=== PATIENT | female | born 1960 | race Caucasian/White ===

== ENCOUNTER → 2022-07-08 15:19 | Outpatient (BNVA) | payer MEDICAID, SELFPAY | PROVIDERS: Referring Provider Family Medicine; Visit Provider Orthopaedic Surgery | DX: M16.12 Unilateral primary osteoarthritis, left hip (principal) | CPT/HCPCS: 73502 ==

== ENCOUNTER 2022-08-25 15:14 | Observation (INO) | payer OTHER, MEDICAID, SELFPAY ==
[2022-08-21 12:58] VITALS: BMI 24.6
--- NOTE | 2022-08-21 13:13 | ECG_ITS ---
[facility] Test Date: 2022-08-21 Pat Name: Radha Ponce Department: Room: Gender: Female Personal Service Workers: : 1960 Requested By: Juan Miguel Negrete Order Number: [id number] Ada MD: Basim Amezcua M.D. Measurements Intervals [place] Rate: 80 P: 68 IA: 157 QRS: 1 QRSD: 77 T: 63 QT: 360 QTc: 417 Interpretive Statements SINUS RHYTHM POSSIBLE LEFT ATRIAL ENLARGEMENT [-0.1mV P-WAVE IN V1/V2] No previous ECG available for comparison Electronically Signed On 08-21-2022 18:10:03 PHOTOENGRAVER APPRENTICE by Basim Amezcua M.D. [email or web address]
[2022-08-21 13:24] LABS: Basophils # 0.1 10^3/uL (0.0-0.1); Basophils % 0.8 %; Eosinophils # 0.2 10^3/uL (0.0-0.8); Eosinophils % 3.2 %; Hematocrit 41.5 % (37.0-47.0); Hemoglobin 12.7 g/dL (11.5-15.3); Lymphocytes # 1.9 10^3/uL (0.8-4.8); Lymphocytes % 29.2 %; Mean Corpuscular HGB Conc 30.6 g/dL (30.0-36.0); Mean Corpuscular Hemoglobin 29.3 pg (28.0-34.0); Mean Corpuscular Volume 95.8 fl (81-99); Mean Platelet Volume 9.9 fL (7.4-10.4); Monocytes # 0.3 10^3/uL (0.2-0.9); Monocytes % 4.8 %; Neutrophils # 4.01 10^3/uL (1.8-7.7); Neutrophils % 61.8 %; Nucleated Red Blood Cells % 0 %; Platelet Count 269 10^3/cmm (130-400); Red Blood Count 4.33 10^6/uL (4.1-5.3); Red Cell Distribution Width 13.4 % (12.1-15.1); White Blood Count 6.5 10^3/uL (4.0-10.0)
[2022-08-21 13:55] LABS: Anion Gap 15.3 (5-19); Blood Urea Nitrogen 11 mg/dL (8-23); Calcium 9.7 mg/dL (8.5-10.5); Carbon Dioxide 29 mmol/L (22-29); Chloride 98 mmol/L (98-107); Glomerular Filtration Rate 72.7 mL/min (90-130); Glucose 94 mg/dL (65-115); Osmolality Calculated 285 mOsm/kg (285-295); Potassium 4.3 mmol/L (3.5-5.1); Sodium 138 mmol/L (136-145)
--- NOTE | 2022-08-21 15:10 | P.ANESASSM_ITS ---
Pre-Anesthetic Assessment Height/Weight: Height 1.73 m Weight 73.482 kg Operation Date: 08/25/22 10:15 Proposed Procedures p eft total hip arthoplasty/ 66041,M87.052(Left) - Carlos Murrieta MD Familial anesthetic complications: none Was Beta Lilia taken within 24 hours: N/A Was Clonidine taken within 24 hours: N/A Social Tobacco and No alcohol Exam alert, oriented x 3 and regular rate & rhythm Airway Submandibular: within normal limits Cervical ROM: within normal limits Mallampati: Class II Dentition: chipped Pulmonary Asthma and Chronic Obstructive Pulmonary Disease CV/HEM Hypertension GI Gastroesophageal Reflux Disease Metabolic Hyperlipidemia [facility] [place] Osteoarthritis/DJD Anesthetic Plan ASA status: 3 Anesthesia: Regional (specify below) (SAB) Medications/Allergies Home Medications Medication Instructions Recorded Confirmed Last Taken Type diphenhydramine HCl 25 mg capsule 25 mg PO TID PRN Allergy Symptoms 07/08/22 08/21/22 Unknown History (Benadryl) duloxetine 60 mg capsule,delayed 60 mg PO DAILY 07/08/22 08/21/22 Unknown History release (Cymbalta) gabapentin 400 mg capsule 800 mg PO TID 07/08/22 08/21/22 Unknown History lisinopril 10 mg tablet 10 mg PO DAILY 07/08/22 08/21/22 Unknown History meloxicam 15 mg tablet 15 mg PO DAILY 07/08/22 08/21/22 Unknown History montelukast 10 mg tablet 10 mg PO DAILY 07/08/22 08/21/22 Unknown History (Singulair) omeprazole 40 mg capsule,delayed 40 mg PO DAILY 07/08/22 08/21/22 Unknown History release simvastatin 20 mg tablet 20 mg PO DAILY 07/08/22 08/21/22 Unknown History acetaminophen 325 mg capsule 325 mg PO PRN PRN Pain 08/21/22 08/21/22 Unknown History (Tylenol) fluticasone 100 mcg-salmeterol 50 1 inh inhalation BID 08/21/22 08/21/22 Unknown History mcg/dose blistr powdr for inhalation (Advair Diskus) Allergies Allergy/AdvReac Type Severity Reaction Status Date / Time No Known Allergies Allergy Verified 08/21/22 12:53 COUNT INCLUDES THE [facility] Anesthesia Social History (Updated 07/08/22 @ 15:14 by Yash Rafaela, BOLT LOADER) Smoking and tobacco status: current every day smoker Alcohol intake: never Data Anesthesia 08/21/22 13:10 08/21/22 13:10 Short CBC 08/21/22 Range/Units 13:10 WBC 6.5 (4.0-10.0) 10^3/uL Hgb 12.7 (11.5-15.3) g/dL Hct 41.5 (37.0-47.0) % MCV 95.8 (81-99) fl Plt Count 269 (130-400) 10^3/cmm Neut % (Auto) 61.8 % Neut # (Auto) 4.01 (1.8-7.7) 10^3/uL BMP 08/21/22 13:10 Sodium 138 Potassium 4.3 Chloride 98 Carbon Dioxide 29 BUN 11 Creatinine 0.8 Glucose 94 Calcium 9.7 Cardiac Studies: No Data to Display
[2022-08-25] VITALS (16 sets, daily range): BP systolic 90–161; BP diastolic 54–92; PULSE 57–96; RESP 16–20; TEMP 36.2–37.1; O2SAT 92–100
[2022-08-25] MEDS: CELEcoxib 200 mg Capsule 400 MG PO (11:29)
[2022-08-25] MEDS: oxyCODONE 20 mg ER (12 HR) Tablet PO (11:29)
[2022-08-25] MEDS: acetaminophen 500 mg Tablet 1000 MG PO ×2 (11:30→17:30)
[2022-08-25] MEDS: sodium chloride 0.9% 1,000 ML 30 ML IV (11:30)
--- NOTE | 2022-08-25 11:46 | P.ANESUD_ITS ---
Pre-Anesthetic Update Pre-Anesthetic Assessment: Date of Surgery/Procedure: 08/25/22 Preop Shannon gnosis: Osteoarthritis left hip Proposed Procedure: Operation Date: 08/25/22 12:35 Proposed Procedures p Left total hip arthoplasty/ 93558,M87.052(Left) - Carlos Murrieta MD Any changes to Pre-Anesthetic Assessment?: No Last Intake: Intake Last Liquid Date 08/24/22 Last Liquid Time 19:00 Last Solid Date 08/24/22 Last Solid Time 19:00 Vitals: Pulse Rhythm 08/25/22 10:57 Pulse Strength 3+ Normal 08/25/22 10:57 Oxygen Delivery Me thod 08/25/22 10:57 Exam: Pre-Anes Outpt Exam: alert, oriented x 3, clear to auscultation bilaterally and regular rate & rhythm Cardiac Studies: No Data to Display
[2022-08-25] MEDS: fentaNYL 50 mcg/mL INJ 2mL IVP (12:15)
--- NOTE | 2022-08-25 12:31 | P.HP_ITS ---
Same Day Surgery H&P Indication for Procedure/HPI DATE OF PROCEDURE: August 25, 2022 CHIEF COMPLAINT/INDICATIONFOR SURGICAL PROCEDURE: Osteoarthritis left hip here for left total hip arthroplasty PREOP DIAGNOSIS: Osteoarthritis left hip PLANNED PROCEDURE: Operation Date: 08/25/22 12:35 Proposed Procedures p Left total hip arthoplasty/ 42809,M87.052(Left) - Carlos Murrieta MD 61-year-old with severe pain in her left hip now for over a month. He has been wheelchair-bound due to the discomfort. She is taken meloxicam and [place] without improvement. She is here for elective left total hip arthroplasty Medications/Allergies* Home Medications Medication Instructions Recorded Confirmed Type diphenhydramine HCl 25 mg capsule 25 mg PO TID PRN Allergy Symptoms 07/08/22 08/25/22 History (Benadryl) duloxetine 60 mg capsule,delayed 60 mg PO DAILY 07/08/22 08/25/22 History release (Cymbalta) gabapentin 400 mg capsule 800 mg PO TID 07/08/22 08/25/22 History lisinopril 10 mg tablet 10 mg PO DAILY 07/08/22 08/25/22 History meloxicam 15 mg tablet 15 mg PO DAILY 07/08/22 08/25/22 History montelukast 10 mg tablet 10 mg PO DAILY 07/08/22 08/25/22 History (Singulair) omeprazole 40 mg capsule,delayed 40 mg PO DAILY 07/08/22 08/25/22 History release simvastatin 20 mg tablet 20 mg PO DAILY 07/08/22 08/25/22 History acetaminophen 325 mg capsule 325 mg PO PRN PRN Pain 08/21/22 08/25/22 History (Tylenol) fluticasone 100 mcg-salmeterol 50 1 inh inhalation BID 08/21/22 08/25/22 History mcg/dose blistr powdr for inhalation (Advair Diskus) Allergies/Adverse Reactions Allergy/AdvReac Type Severity Reaction Status Date / Time No Known Allergies Allergy Verified 08/21/22 12:53 Current Medications: Generic Name Dose Route Start Last Admin Trade Name Freq PRN Reason Stop Dose Admin Sodium Chloride 1,000 mls @ 30 mls/hr 08/25/22 10:30 08/25/22 11:30 Sodium Chloride 0.9% IV 08/26/22 10:29 30 mls/hr .Q24H YOKASTA Administration Pertinent History/Comorbid Conditions* Social History Smoking and tobacco status: current every day smoker Alcohol intake: never Pertinent Exam Findings alert, oriented x 3, clear to auscultation bilaterally, regular rate & rhythm, operative site marked and procedure specific exam findings HIP, [left] RANGE OF MOTION:? EXAMINED HIP ? Flexion: 90 ? Extrenal Rotation:30 ? Internal Rotation:20 ? Severe pain and popping with motion of the left hip ? ? ? Left knee motion from full extension 120 degrees She is examined in her wheelchair and unable to stand and ambulate.? She has strong symmetrical ankle dorsiflexion ankle plantarflexion and big toe extension bilaterally.? Her left lower extremity sensation is intact light touch. Will not actively move her left hip due to pain Recommendations Surgery/Procedure today Coding Level of Care Code Acute Code for Makenzie Hooper
[2022-08-25] MEDS: ceFAZolin 2,000 MG in sodium chloride 0.9% (plus) 50 ML 100 MG IV ×2 (12:46→19:55)
[2022-08-25] MEDS: tranexamic acid 1,000 mg/10mL SDV 1000 MG IV (13:10)
--- NOTE | 2022-08-25 14:37 | P.OP_ITS ---
Operative Report Date of procedure: August 25, 2022 Pre-op diagnosis: Preop Diagnosis Osteoarthritis left hip Post-op diagnosis: same Post-op diagnosis: Same Procedure done: Left total hip arthroplasty Implants: 1) Tonica 52 mm Trident 2 solid back acetabular shell 2) Size 6 Kolby 127 degree neck angle Accolade 2 stem 3} 28mm -2.7 standard ceramic femoral head 4} E MDM metal liner Pathology: none sent Surgeon: Carlos Murrieta Anesthesia: Nerve Block (Spinal) Estimated blood loss (mL): 300 Findings: Patient had severe degenerative changes of the left femoral head and acetabulum with retroversion of the acetabulum Condition: stable Disposition: PACU Brief History: See admission history and physical Procedure: The patient was taken to the operating room and anesthesia provided by the anesthesia service. The patient was placed in the lateral position on a pegboard. A timeout was performed. The patient was draped in the usual fashion. A 15 cm long incision was made beginning just proximal to the greater trochanter and extending posteriorly to a point just distal to the trochanter on the posterior border of the trochanter. Dissection was carried down with electrocautery through the subcutaneous fat to the fascia juan which was divided proximally and distally with curved scissors. The anterior two thirds of the gluteus medius and minimus were elevated off the hip with electrocautery. The capsule was divided in a H-like fashion. The hip was dislocated and a neck cut made just above the level of the lesser trochanter. Exposure of the acetabulum was facilitated with the acetabular retractors. Remnants of labrum and peripheral osteophytes were removed with electrocautery and a rongeur. A reamer 2 mm under the size the femoral head was utilized to ream medially to the base of the palm and are. Reaming was then increased in 1 mm intervals until a healthy rim a trabecular bone was encountered. The rim was touched with the reamer the size of the final acetabular shell to be placed. A final Trident 2 acetabular cup of the same size as the final reaming was press- fit into place using the orientation of the acetabulum for placement. As there is some retroversion of the acetabulum the cup was put in neutral anteversion. The ADM liner was secured. Attention was then focused on the femur. The canal was localized with a canal finder. Broaching was then accomplished until a stable broach size was obtained. A trial reduction with the head and neck provided excellent stability. The wound was irrigated with saline and antibiotic solution. The final Tonica Accolade II stem was press-fit into place. The femoral head was placed and the hip was reduced. The hip was brought through range of motion and found to be free of impingement and stable. The anterior capsule was reapproximated with 1 Ethibond. The gluteus medius and minimus were repaired through bone with 5 Ethibond and reinforced with 1 Ethibond. The fascial juan was closed with a running 0 Stratafix suture. Deep pelvic tissues were closed with 2-0 Stratafix and the skin with a running 4-0 l Stratafix. The skin was covered with a Prineo dressing and op site dressings.
--- NOTE | 2022-08-25 14:44 | XRR_ITS ---
PROCEDURE INFORMATION: Exam: XR Left Hip Exam date and time: 08/26/2022 3:10 AM Age: 61 years old Clinical indication: Device placement; Other: Left total hip arthroplasty; Prior surgery; Surgery date: Post-operative (0-2 days) TECHNIQUE: Imaging protocol: Radiologic exam of the left hip. Views: 1 view hip with pelvis when performed. COMPARISON: DX XR hip LT 2-3V wo/w pel* [id number] 07/26/2022 1:51 PM FINDINGS: Bones/joints: Left hip arthroplasty changes in place without abnormality. Soft tissues: Unremarkable. XR/XR hip LT 1V wo/w pel [id number] IMPRESSION: Left hip arthroplasty changes in place without abnormality.
--- NOTE | 2022-08-25 15:40 | ANE.PACU2 ---
Inpatient post-anesthesia follow up: Airway intact: Yes Vital signs: Temperature 97.5 F Pulse Rate 78 Respiratory Rate 15 Blood Pressure 124/57 Pulse Oximetry 91 Oxygen Delivery Me thod Room Air Oxygen Flow Rate 6 Fraction of Inspir ed Oxygen Hydration adequate: Yes Nausea and vomiting: No Pain level: 1 Mental status: Baseline
[2022-08-25] MEDS: sodium chloride 0.9% 1,000 ML 100 ML IV (17:24)
[2022-08-25] MEDS: sennosides-docusate Tablet 2 TAB PO (17:29)
[2022-08-25] MEDS: gabapentin 400 mg Capsule 800 MG PO ×2 (17:29→20:23)
[2022-08-25] MEDS: CELEcoxib 200 mg Capsule PO (17:30)
[2022-08-25] MEDS: oxyCODONE 5 mg IR Tab/Cap PO (21:38)
[2022-08-25] MEDS: morphine 4 mg/mL SDV 1 mL 2 MG IVP (22:16)
[2022-08-26] VITALS (13 sets, daily range): BP systolic 104–143; BP diastolic 57–79; PULSE 78–103; RESP 12–18; TEMP 36.4–36.8; O2SAT 91–97
[2022-08-26] MEDS: acetaminophen 500 mg Tablet 1000 MG PO ×2 (00:33→08:32)
[2022-08-26] MEDS: sodium chloride 0.9% 1,000 ML 100 ML IV ×2 (02:42→14:31)
[2022-08-26] MEDS: oxyCODONE 5 mg IR Tab/Cap PO ×2 (03:01→08:31)
[2022-08-26] MEDS: ceFAZolin 2,000 MG in sodium chloride 0.9% (plus) 50 ML 100 MG IV ×2 (04:22→14:32)
[2022-08-26] MEDS: CELEcoxib 200 mg Capsule PO ×2 (05:20→17:15)
[2022-08-26 05:42] LABS: Hemoglobin 10.6 g/dL (11.5-15.3)
[2022-08-26] MEDS: budesonide 0.5 mg/2 mL Neb INHALATION ×2 (07:29→20:43)
[2022-08-26] MEDS: albuterol 2.5 mg/3 mL Neb INHALATION ×3 (07:29→20:44)
[2022-08-26] MEDS: atorvastatin 40 mg Tablet 20 MG PO (08:30)
[2022-08-26] MEDS: duloxetine 60 mg Capsule PO (08:31)
[2022-08-26] MEDS: lisinopril 10 mg Tablet PO (08:31)
[2022-08-26] MEDS: gabapentin 400 mg Capsule 800 MG PO ×3 (08:31→20:05)
[2022-08-26] MEDS: sennosides-docusate Tablet 2 TAB PO ×2 (08:32→17:15)
[2022-08-26] MEDS: montelukast sodium 10 mg Tablet PO (08:32)
[2022-08-26] MEDS: pantoprazole DR 40 mg Tablet PO (08:32)
[2022-08-26] MEDS: aspirin 325 mg EC Tablet PO (08:32)
--- NOTE | 2022-08-26 10:24 | PC.CHAP ---
Pastoral Care Encounter/Spiritual Assessment Type of Contact [] Declined press machine operator visit [] Patient/Family/Request visit [] Outpatient visit [] Follow-up visit [] Physician referral [] Code/Alert [x] Routine visit [] Staff referral [] Actively dying [] Patient sleeping [] Family support [] [] Out of room [] Palliative care [] [] Receiving care in room [] Pre-surgical visit [] Trauma [] Long length of stay [] ICU visit [] Other: Relational/Emotional Strength [x] Patient feels connected with others/family/visitors/staff [] Distress [] Loneliness/isolation [] Abandonment Spirituality of Patient [x] Person of Sierra [] Attends Buddhism of their [place] [x] Believes in Prayer [] Reads Bible or Protestant materials [] There are Spiritual issues to be addressed Network Field Engineer Interventions [x] Prayer [] Active listening [] Non-anxious presence [x] Spiritual/emotional support [] Crisis/trauma care [] Spiritual counseling [] Bereavement support [] Provided bereavement packet [] Provided Bible/devotional materials [] Provided toy/stuffed animal, coloring book to patient or family member [] Provided Communion [] Anointing/[place] [] Salvation [x] Completed spiritual assessment [] Other: Impact on Illness or Injury [] Angry [] Fearful [] Anxious [] Often cries [] Exhaustion [] Unable to work [] Unable to attend yazdanism [] Unable to walk/stand [] Unable to read [] Unable to drive [] Unable to eat/drink [] Unable to sleep [] Unable to be with family [] Patient intubated [] Other: Summary Time spent with patient 5 min
--- NOTE | 2022-08-26 14:42 | PM.PN ---
Subjective Subjective: Continues to complain of pain despite oxycodone. Nursing reports sedation with medication. Passing urine. Good p.o. intake. Able to stand and transfer to chair at bedside but ambulates no further Vitals/I&O/Wt Last Vital Signs Temp 97.5 F L 08/26/22 13:25 Pulse 78 08/26/22 13:25 Resp 15 08/26/22 13:25 BP 124/57 08/26/22 13:25 Pulse Ox 91 08/26/22 13:25 O2 Del Method 08/26/22 13:25 O2 Flow Rate 6 08/25/22 14:57 08/25/22 08/26/22 08/26/22 22:59 06:59 14:59 Intake Total 508.5 / 558.5 1220 / 1778.5 1360 / 1360 Balance 508.5 / 258.5 1220 / 1478.5 1360 / 1360 Physical Exam Narrative: Left hip dressing clean and dry. Minimal swelling left thigh Data 08/26/22 05:33 08/21/22 13:10 A&P Assessment and plan (1) Status post left hip replacement: Radha is making slow progress with therapy and having problems with pain control. We will change her pain medication. We will change her to admit status. Will be reevaluated tomorrow after physical therapy. Attestations Medical Necessity Statement*: Discharge home when ambulatory status and pain control improve Coding Level of Care Code Acute Code for Chg Fwd Diagnoses Status post left hip replacement Z96.642
[2022-08-26] MEDS: HYDROcodone-acetaminophen 7.5-325 mg Tablet 1 TAB PO ×3 (14:51→23:03)
[2022-08-27] VITALS: BP 110/66; PULSE 97; RESP 16; TEMP 36.8; O2SAT 97
[2022-08-27] MEDS: sodium chloride 0.9% 1,000 ML 100 ML IV (01:13)
[2022-08-27] MEDS: HYDROcodone-acetaminophen 7.5-325 mg Tablet 1 TAB PO ×2 (03:34→08:12)
[2022-08-27 04:00] VITALS: BP 101/67; PULSE 97; RESP 16; TEMP 37; O2SAT 94
[2022-08-27] MEDS: CELEcoxib 200 mg Capsule PO (05:34)
[2022-08-27 08:00] VITALS: BP 110/73; PULSE 85; RESP 18; TEMP 36.8; O2SAT 94
[2022-08-27] MEDS: atorvastatin 40 mg Tablet 20 MG PO (08:11)
[2022-08-27] MEDS: montelukast sodium 10 mg Tablet PO (08:11)
[2022-08-27] MEDS: duloxetine 60 mg Capsule PO (08:13)
[2022-08-27] MEDS: lisinopril 10 mg Tablet PO (08:14)
[2022-08-27] MEDS: gabapentin 400 mg Capsule 800 MG PO (08:14)
[2022-08-27] MEDS: pantoprazole DR 40 mg Tablet PO (08:14)
[2022-08-27] MEDS: aspirin 325 mg EC Tablet PO (08:14)
[2022-08-27] MEDS: sennosides-docusate Tablet 2 TAB PO (08:14)
[2022-08-27 08:24] VITALS: PULSE 90; RESP 18; O2SAT 95
[2022-08-27] MEDS: albuterol 2.5 mg/3 mL Neb INHALATION (08:24)
[2022-08-27] MEDS: budesonide 0.5 mg/2 mL Neb INHALATION (08:24)
[2022-08-27 08:29] VITALS: PULSE 88
--- NOTE | 2022-08-27 08:29 | P.DS_ITS ---
Discharge Providers Date of Admission: 08/25/22 15:14 Date of Discharge: August 27, 2022 Attending Provider at Admission: Carlos Murrieta MD Attending Provider at Discharge: Carlos Murrieta MD Primary Care Provider: Facundo Manzo Diagnoses at Discharge Discharge Diagnosis (1) Status post left hip replacement: Status: Acute (2) Osteoarthritis of left hip: Status: Resolved Reason for Visit Reason for Visit: M87.052 Hospital Course Hospital Course The patient tolerated surgery well. They remained hemodynamically stable. They was begun on aspirin and sequential compression dressings for DVT prophylaxis. The patient was mobilized with therapy but had quite a bit of pain requiring additional day of hospitalization. By the second postoperative day, the pain was adequately controlled and they were fully mobile they were discharged home. Physical Exam Narrative: On the day of discharge the hip incision was clean. The incision was free of drainage. They had no particular swelling about the thigh or distal. No distal neurovascular deficits were noted. Discharge Data Studies Completed and Pending Completed Studies During Hospitalization Category Date Time Status XR hip LT 1V wo/w pel [id number] Routine Exams 08/25/22 14:44 Completed Radiology Impressions Hip X-Ray 08/25/22 14:44 IMPRESSION: Left hip arthroplasty changes in place without abnormality. Laboratory Results WBC 6.5 10^3/uL (4.0-10.0) 08/21/22 13:10 RBC 4.33 10^6/uL (4.1-5.3) 08/21/22 13:10 Hgb 10.6 g/dL (11.5-15.3) L 08/26/22 05:33 Hct 41.5 % (37.0-47.0) 08/21/22 13:10 MCV 95.8 fl (81-99) 08/21/22 13:10 MCH 29.3 pg (28.0-34.0) 08/21/22 13:10 MCHC 30.6 g/dL (30.0-36.0) 08/21/22 13:10 RDW 13.4 % (12.1-15.1) 08/21/22 13:10 Plt Count 269 10^3/cmm (130-400) 08/21/22 13:10 MPV 9.9 fL (7.4-10.4) 08/21/22 13:10 Neut % (Auto) 61.8 % 08/21/22 13:10 Lymph % (Auto) 29.2 % 08/21/22 13:10 [place] % (Auto) 4.8 % 08/21/22 13:10 Eos % (Auto) 3.2 % 08/21/22 13:10 Baso % (Auto) 0.8 % 08/21/22 13:10 Neut # (Auto) 4.01 10^3/uL (1.8-7.7) 08/21/22 13:10 Lymph # (Auto) 1.9 10^3/uL (0.8-4.8) 08/21/22 13:10 [place] # (Auto) 0.3 10^3/uL (0.2-0.9) 08/21/22 13:10 Eos # (Auto) 0.2 10^3/uL (0.0-0.8) 08/21/22 13:10 Baso # (Auto) 0.1 10^3/uL (0.0-0.1) 08/21/22 13:10 Nucleated RBC % (auto) 0 % 08/21/22 13:10 Nucleated RBCs # 0.0 /100WBC 08/21/22 13:10 Sodium 138 mmol/L (136-145) 08/21/22 13:10 Potassium 4.3 mmol/L (3.5-5.1) 08/21/22 13:10 Chloride 98 mmol/L (98-107) 08/21/22 13:10 Carbon Dioxide 29 mmol/L (22-29) 08/21/22 13:10 Anion Gap 15.3 (5-19) 08/21/22 13:10 BUN 11 mg/dL (8-23) 08/21/22 13:10 Creatinine 0.8 mg/dL (0.5-0.9) 08/21/22 13:10 GFR Calculation 72.7 mL/min (90-130) L 08/21/22 13:10 Glucose 94 mg/dL (65-115) 08/21/22 13:10 Calculated Osmolality 285 mOsm/kg (285-295) 08/21/22 13:10 Calcium 9.7 mg/dL (8.5-10.5) 08/21/22 13:10 Vitals Last Vital Signs Temp 98.6 F 08/27/22 04:00 Pulse 90 08/27/22 08:24 Resp 18 08/27/22 08:24 BP 101/67 08/27/22 04:00 Pulse Ox 95 08/27/22 08:24 O2 Del Method 08/27/22 08:24 O2 Flow Rate 6 08/25/22 14:57 Discharge Plan Discharge Patient Disposition: Home Health Service Condition: Stable Prescriptions: New hydrocodone-acetaminophen 7.5-325 mg Tablet 1 tab PO Q4H PRN (Reason: Moderate Pain) 7 Days Qty: 30 0RF aspirin 325 mg Tablet,Delayed Release (Dr/Ec) 325 mg PO DAILY 30 Days Qty: 30 0RF celecoxib 200 mg Capsule 200 mg PO Q12H 14 Days Qty: 28 0RF Continued omeprazole 40 mg capsule,delayed release(DR/EC) 40 mg PO DAILY simvastatin 20 mg tablet 20 mg PO DAILY lisinopril 10 mg tablet 10 mg PO DAILY duloxetine [Cymbalta] 60 mg capsule,delayed release(DR/EC) 60 mg PO DAILY montelukast [Singulair] 10 mg tablet 10 mg PO DAILY gabapentin 400 mg capsule 800 mg PO TID diphenhydramine HCl [Benadryl] 25 mg capsule 25 mg PO TID PRN (Reason: Allergy Symptoms) fluticasone propion-salmeterol [Advair Diskus] 100-50 mcg/dose blister with device 1 inh INHALATION BID acetaminophen [Tylenol] 325 mg Capsule 325 mg PO PRN PRN (Reason: Pain) Held meloxicam 15 mg tablet 15 mg PO DAILY Hold Instructions: Resume on 09/10/22. Discharge Orders: Discharge Order (Routine); Ordered 08/27/22 Ordered By: Carlos Murrieta [place] [facility] [place] [Outside] Facundo Manzo [Primary Care Provider] - 09/05/22 1:30 pm Discharge Diet: Advance as tolerated Discharge Activity: Limit activity as instructed Patient Instructions: Opioid Safety Activity Restrictions/Additional Instructions: Okay to shower. No soaking incision in tub Apply FirstIce up to 20 min/hr for pain and swelling Take Celebrex twice a day for the next 15 days for pain , discontinue other anti-inflammatories Take Westhoff for breakthrough pain. Exercises per physical therapy. May weight-bear as tolerated on total hip arthroplasty IF HAVE ANY PROBLEMS OR QUESTIONS CALL [facility] AT AND ASK TO HAVE DR. SAGRARIO OLSEN. Discharge Attestations Time Spent in Discharge Care*: other Quality Metrics Clinical Quality Measures [ No reported AMI, CVA or VTE this stay] Coding Level of Care Code Acute Code for Chg Fwd Diagnoses Status post left hip replacement Z96.642 Osteoarthritis of left hip M16.12
[2022-08-27 11:09] VITALS: PULSE 88
== END 2022-08-27 11:10 | disposition home health service (06) ==
LOC: MEDSURG 15:14
PROVIDERS: Anesthesiology; Admitting Provider Orthopaedic Surgery; PCP Family Medicine; Visit Provider Orthopaedic Surgery
PROC: (CPT 27130; principal; 2022-08-25 12:05)
DX: M16.12 Unilateral primary osteoarthritis, left hip (principal)
CPT/HCPCS: 27130; 36415; 73501; 80048; 85018; 85025; 93005; 94640; 97110; 97116; 97161; 97167; 97530; 97535; C1776; G0378; J0690; J1580; J2250; J2270; J2370; J2704; J3010; J7030; J7613; J7626